=== PATIENT | male | born 1995 | race Caucasian/White ===

== ENCOUNTER → 2022-12-07 | Outpatient (CLI) | payer OTHER | LOC: M RAD 14:52 | PROVIDERS: ATTEND Orthopaedic Surgery Hand Surgery | DX: M25.531 Pain in right wrist (principal); S62.001A Unspecified fracture of navicular [scaphoid] bone of right wrist, initial encounter for closed fracture; X58.XXXA Exposure to other specified factors, initial encounter; Y92.9 Unspecified place or not applicable; Y93.9 Activity, unspecified; Y99.9 Unspecified external cause status ==

== ENCOUNTER 2023-03-29 08:52 | Day surgery (SDC) | payer OTHER ==
[~2023-03-29] VITALS: Ht 188 cm; Wt 82.7 kg
[2023-03-29] MEDS ORDERED: LR 1,000 ML IV SCH ×2 (09:35→12:50)
[2023-03-29] MEDS ORDERED: ceFAZolin SOD 2 GM in IV 1 EA IV ONE (10:00)
[2023-03-29] MEDS ORDERED: fentaNYL 100 MCG/2 ML INJECTION As Ordered ONE ×2 (10:03→10:58)
[2023-03-29] MEDS ORDERED: MIDAZOLAM INJ 2MG/2ML VIAL As Ordered ONE ×2 (10:03→10:58)
[2023-03-29] MEDS ORDERED: fentaNYL 100 MCG/2 ML INJECTION IV PRN ×2 (10:05→12:50)
[2023-03-29] MEDS ORDERED: ROPIvacaine 0.5% 30ML VIAL PN ONE (10:05)
[2023-03-29] MEDS: MIDAZOLAM INJ 2MG/2ML VIAL IV PRN ×2 (10:06→10:09)
[2023-03-29] MEDS ORDERED: propofoL 200 MG/20 ML VIAL As Ordered ONE (10:58)
[2023-03-29] MEDS ORDERED: ACETAMINOPHEN 1000MG 100ML IV BAG As Ordered ONE (10:58)
[2023-03-29] MEDS ORDERED: ONDANSETRON 4MG 2ML VIAL As Ordered ONE (10:58)
[2023-03-29] MEDS ORDERED: ePHEDrine SULFATE 25 MG/5 ML(5MG/ML) SYRINGE As Ordered ONE ×2 (10:58→11:06)
[2023-03-29] MEDS ORDERED: LIDOCAINE 2% 100MG/5ML SDV (FOR ANES.) As Ordered ONE (10:58)
[2023-03-29] MEDS ORDERED: ONDANSETRON 4MG 2ML VIAL IV PRN (12:50)
[2023-03-29] MEDS ORDERED: oxyCODONE 5MG TAB PO PRN (12:50)
[2023-03-29] MEDS ORDERED: HYDROMORPHONE HCL 0.5 MG/ 0.5 ML SYRINGE IV PRN (12:50)
[2023-03-29] MEDS ORDERED: PERC5TAB12 PO (12:59)
[2023-03-29 14:05] VITALS: BP 120/60; TEMP 97.2; O2SAT 100
== END 2023-03-29 14:10 | disposition home or self-care (01) ==
LOC: M SDC 08:52
PROVIDERS: ATTEND Orthopaedic Surgery Hand Surgery
DX: S62.001K Unspecified fracture of navicular [scaphoid] bone of right wrist, subsequent encounter for fracture with nonunion (principal); M25.531 Pain in right wrist; F17.200 Nicotine dependence, unspecified, uncomplicated
CPT/HCPCS: 25440; 64418; 76000; C1713; C1762; J0131; J0690; J1100; J2250; J2405; J3010

== ENCOUNTER → 2023-04-08 | Outpatient (CLI) | payer OTHER ==
[~2023-04-08] MED LIST: PERC5TAB12 PO
== END ==
LOC: M SOG 08:07
PROVIDERS: ATTEND Physician Assistant
DX: S62.001D Unspecified fracture of navicular [scaphoid] bone of right wrist, subsequent encounter for fracture with routine healing (principal)

== ENCOUNTER → 2023-05-21 | Outpatient (CLI) | payer OTHER | LOC: M SOG 08:06 | PROVIDERS: ATTEND Physician Assistant | DX: S62.001D Unspecified fracture of navicular [scaphoid] bone of right wrist, subsequent encounter for fracture with routine healing (principal) ==

== ENCOUNTER → 2023-05-30 | Outpatient (CLI) | payer OTHER | LOC: M RAD 09:14 | PROVIDERS: ATTEND Orthopaedic Surgery Hand Surgery | DX: S62.011D Displaced fracture of distal pole of navicular [scaphoid] bone of right wrist, subsequent encounter for fracture with routine healing (principal) ==

== ENCOUNTER → 2023-08-12 | Outpatient (CLI) | payer OTHER | LOC: M SOG 07:59 | PROVIDERS: ATTEND Physician Assistant | DX: M25.631 Stiffness of right wrist, not elsewhere classified (principal); M25.641 Stiffness of right hand, not elsewhere classified; Z87.81 Personal history of (healed) traumatic fracture ==